=== PATIENT | male | born 1945 | race Caucasian/White ===

== ENCOUNTER 2019-10-03 14:12 | Inpatient (IN) | payer MEDICARE ==
[~2019-10-03] VITALS: Ht 177.8 cm; Wt 108.3 kg
[2019-10-03 14:51] LABS: BASO # 0.1 x10^3/uL (0.0-0.2); BASO % 1 % (0-3); EOS # 0.2 x10^3/uL (0.0-0.7); EOS % 2 % (0-3); HEMOGLOBIN 17.2 g/dL (13.0-17.5); LYMPH # 2.9 x10^3/uL (1.0-4.8); LYMPH % 34 % (24-48); MEAN CORPUSCULAR HEMOGLOBIN 31 pg (25-35); MEAN CORPUSCULAR HGB CONC 35 g/dL (31-37); MEAN CORPUSCULAR VOLUME 89 fL (79-100); MONO # 0.8 x10^3/uL (0.0-1.1); MONO % 10 % (0-9); NEUT # 4.6 x10^3/uL (1.8-7.7); NEUT % 53 % (31-73); PLATELET COUNT 262 x10^3/uL (140-400); RED BLOOD COUNT 5.48 x10^6/uL (4.30-5.70); RED CELL DISTRIBUTION WIDTH 15.1 % (11.5-14.5); WHITE BLOOD COUNT 8.6 x10^3/uL (4.0-11.0)
[2019-10-03 14:58] LABS: PROTHROMBIN TIME PATIENT 13.3 SEC (11.7-14.0)
[2019-10-03 15:02] LABS: CALCIUM 8.4 mg/dL (8.5-10.1); CREATININE 0.9 mg/dL (0.7-1.3); GFR 82.7; POTASSIUM 4.2 mmol/L (3.5-5.1)
[2019-10-03 15:09] LABS: ALBUMIN 3.5 g/dL (3.4-5.0); MAGNESIUM 1.9 mg/dL (1.8-2.4); TOTAL BILIRUBIN 0.5 mg/dL (0.2-1.0); TOTAL PROTEIN 6.9 g/dL (6.4-8.2)
--- NOTE | 2019-10-03 15:10 | RAD ---
EXAM: CT HEAD WITHOUT CONTRAST. HISTORY: Left weakness. TECHNIQUE: Computed tomography of the head was performed without intravenous contrast. One or more of the following individualized dose reduction techniques were utilized for this examination: 1. Automated exposure control. 2. Adjustment of the mA and/or kV according to patient size. 3. Use of iterative reconstruction technique. COMPARISON: None. FINDINGS: There is no intracranial hemorrhage. Hypoattenuation within the periventricular white matter indicates mild chronic microangiopathic change. The ventricles are normal in size and position for patient age. The visualized paranasal sinuses appear clear. The orbits are unremarkable. The temporal bones are unremarkable. The calvarium reveals no suspicious lesions. There are atherosclerotic calcifications of the internal carotid arteries. IMPRESSION: 1. No acute intracranial findings. MRI is more sensitive for acute ischemia if there is persistent concern. 2. Mild chronic microangiopathic white matter change. Electronically signed by: Lise Patton MD (10/03/2019 3:07 PM) [facility]
[2019-10-03 15:55] LABS: BILIRUBIN,URINE NEGATIVE (NEG); CLARITY,URINE CLEAR; COLOR,URINE YELLOW; NITRITE,URINE NEGATIVE (NEG); PH,URINE 6.5 (<5.0-8.0); PROTEIN,URINE NEGATIVE (NEG-TRACE)
--- NOTE | 2019-10-03 15:58 | EKG ---
[facility] [address] [place] [address] Test Date: 2019-10-03 Test Time: 14:27:37 Pat Name: KHURRAM MCDONNELL Department: Room: Gender: M Galley Worker: : 1945 Requested By: DELICIA LEMUS Order Number: [id number] Reading MD: Michael Hansen Measurements Intervals [place] Rate: 62 P: -22 DC: 234 QRS: 29 QRSD: 86 T: 64 QT: 416 QTc: 424 Interpretive Statements SINUS RHYTHM PROLONGED DC INTERVAL NON SPECIFIC ST-T WAVE CHANGES Electronically Signed On 10-30-2019 12:44:18 CDT by Michael Hansen
[2019-10-03 16:11] LABS: BACTERIA,URINE FEW /HPF (0-FEW); SQUAMOUS EPITHELIAL CELL,UR FEW /LPF
--- NOTE | 2019-10-03 16:18 | PHYS DOC ---
Past Medical History Past Medical History: GERD, High Cholesterol, Hypertension, Other Additional Past Medical Histor: 'ENLARGED PROSTATE I THINK' Past Surgical History: Cholecystectomy, Other Additional Past Surgical Histo: BILAT KNEE, L SHOULDER Smoking Status: Current Every Day Smoker Alcohol Use: None General Adult EDM: Chief Complaint: NEURO SYMPTOMS/DEFICITS HPI: HPI: Patient is a 74 year old male who was brought here by family for evaluation of left-sided facial droop, left-sided weakness and slurred speech started 4 days ago. No cough, no fever, no headache, no neck pain, no blurred vision. Patient denies any history of heart disease, no history of stroke in the past. Patient do have history of hypertension and hypercholesterol. Patient is on baby aspir in a day. Review of Systems: Review of Systems: Constitutional: Denies fever or chills. [] Eyes: Denies change in visual acuity. [] HENT: Denies nasal congestion or sore throat. [] Respiratory: Denies cough or shortness of breath. [] Cardiovascular: Denies chest pain or edema. [] GI: Denies abdominal pain, nausea, vomiting, bloody stools or diarrhea. [] : Denies dysuria. [] Musculoskeletal: Denies back pain or joint pain. [] Integument: Denies rash. [] Neurologic: Positive for left-sided facial droop, slurred speech, left-sided weakness. Endocrine: Denies polyuria or polydipsia. [] Lymphatic: Denies swollen glands. [] Psychiatric: Denies depression or anxiety. [] Heart Score: Risk Factors: Risk Factors: DM, Current or recent (<one month) smoker, HTN, HLP, family history of CAD, obesity. Risk Scores: Score 0 - 3: 2.5% MACE over next 6 weeks - Discharge Home Score 4 - 6: 20.3% MACE over next 6 weeks - Admit for Clinical Observation Score 7 - 10: 72.7% MACE over next 6 weeks - Early Invasive Strategies Allergies: Allergies: Allergies Coded Allergies Type Severity Reaction Last Updated Verified Penicillins Allergy Severe swelling 10/03/19 Yes Physical Exam: PE: Constitutional: Well developed, well nourished, no acute distress, non-toxic appearance. [] HENT: Normocephalic, atraumatic, bilateral external ears normal, oropharynx moist, no oral exudates, nose normal. [] Eyes: PERRLA, EOMI, conjunctiva normal, no discharge. [] Neck: Normal range of motion, no tenderness, supple, no stridor. [] Cardiovascular:Heart rate regular rhythm, no murmur [] Lungs & Thorax: Bilateral breath sounds clear to auscultation [] Abdomen: Bowel sounds normal, soft, no tenderness, no masses, no pulsatile masses. [] Skin: Warm, dry, no erythema, no rash. [] Back: No tenderness, no CVA tenderness. [] Extremities: No tenderness, no cyanosis, no clubbing, ROM intact, no edema. [] Neurologic: Alert and oriented X 3, left-sided facial droop, no forehead involvement, slurred speech, patient moves all extremities without any problem. Psychologic: Affect normal, judgement normal, mood normal. [] Current Patient Data: Labs: Laboratory Tests Test 10/03/19 14:22 10/03/19 14:23 10/03/19 15:47 Glucose (Fingerstick) 111 mg/dL (70-99) H White Blood Count 8.6 x10^3/uL (4.0-11.0) Red Blood Count 5.48 x10^6/uL (4.30-5.70) Hemoglobin 17.2 g/dL (13.0-17.5) Hematocrit 49.0 % (39.0-53.0) Mean Corpuscular Volume 89 fL (79-100) Mean Corpuscular Hemoglobin 31 pg (25-35) Mean Corpuscular Hemoglobin Concent 35 g/dL (31-37) Red Cell Distribution Width 15.1 % (11.5-14.5) H Platelet Count 262 x10^3/uL (140-400) Neutrophils (%) (Auto) 53 % (31-73) Lymphocytes (%) (Auto) 34 % (24-48) Monocytes (%) (Auto) 10 % (0-9) H Eosinophils (%) (Auto) 2 % (0-3) Basophils (%) (Auto) 1 % (0-3) Neutrophils # (Auto) 4.6 x10^3/uL (1.8-7.7) Lymphocytes # (Auto) 2.9 x10^3/uL (1.0-4.8) Monocytes # (Auto) 0.8 x10^3/uL (0.0-1.1) Eosinophils # (Auto) 0.2 x10^3/uL (0.0-0.7) Basophils # (Auto) 0.1 x10^3/uL (0.0-0.2) Prothrombin Time 13.3 SEC (11.7-14.0) Prothrombin Time INR 1.1 (0.8-1.1) Activated Partial Thromboplast Time 37 SEC (24-38) Sodium Level 139 mmol/L (136-145) Potassium Level 4.2 mmol/L (3.5-5.1) Chloride Level 101 mmol/L (98-107) Carbon Dioxide Level 27 mmol/L (21-32) Anion Gap 11 (6-14) Blood Urea Nitrogen 13 mg/dL (8-26) Creatinine 0.9 mg/dL (0.7-1.3) Estimated GFR (Cockcroft-Gault) 82.7 BUN/Creatinine Ratio 14 (6-20) Glucose Level 107 mg/dL (70-99) H Calcium Level 8.4 mg/dL (8.5-10.1) L Magnesium Level 1.9 mg/dL (1.8-2.4) Total Bilirubin 0.5 mg/dL (0.2-1.0) Aspartate Amino Transferase (AST) 19 U/L (15-37) Alanine Aminotransferase (ALT) 20 U/L (16-63) Alkaline Phosphatase 93 U/L (46-116) Troponin I Quantitative < 0.017 ng/mL (0.000-0.055) Total Protein 6.9 g/dL (6.4-8.2) Albumin 3.5 g/dL (3.4-5.0) Albumin/Globulin Ratio 1.0 (1.0-1.7) Urine Collection Type Unknown Urine Color Yellow Urine Clarity Clear Urine pH 6.5 (<5.0-8.0) Urine Specific [place] 1.020 (1.000-1.030) Urine Protein Negative mg/dL (NEG-TRACE) Urine Glucose (UA) Negative mg/dL (NEG) Urine Ketones (Stick) Negative mg/dL (NEG) Urine Blood Negative (NEG) Urine Nitrite Negative (NEG) Urine Bilirubin Negative (NEG) Urine Urobilinogen Dipstick 1.0 mg/dL (0.2 mg/dL) Urine Leukocyte Esterase Small (NEG) Urine RBC 1-2 /HPF (0-2) Urine WBC 5-10 /HPF (0-4) Urine Squamous Epithelial Cells Few /LPF Urine Bacteria Few /HPF (0-FEW) Urine Mucus Slight /LPF Laboratory Tests 10/03/19 14:23 Laboratory Tests 10/03/19 14:23 Vital Signs: Vital Signs Date Time Temp Pulse Resp B/P (MAP) Pulse Ox O2 Delivery O2 Flow Rate FiO2 10/03/19 14:18 98.2 65 22 215/93 (133) 95 Room Air 98.2 EKG: EKG: EKG was done at 1427, heart rate of 62 bpm, sinus rhythm, no ST segment elevation Radiology/Procedures: Radiology/Procedures: [][facility] [address] [place] [address] IMAGING REPORT Signed PATIENT: KHURRAM MCDONNELL ACCOUNT: [id number] : 1945 LOCATION: ER AGE: 74 SEX: M EXAM STATUS: REG ER ORD. PHYSICIAN: DELICIA LEMUS DO REASON: left side facial droop, left side weakness PROCEDURE: CT HEAD WO CONTRAST EXAM: CT HEAD WITHOUT CONTRAST. HISTORY: Left weakness. TECHNIQUE: Computed tomography of the head was performed without intravenous contrast. One or more of the following individualized dose reduction techniques were utilized for this examination: 1. Automated exposure control. 2. Adjustment of the mA and/or kV according to patient size. 3. Use of iterative reconstruction technique. COMPARISON: None. FINDINGS: There is no intracranial hemorrhage. Hypoattenuation within the periventricular white matter indicates mild chronic microangiopathic change. The ventricles are normal in size and position for patient age. The visualized paranasal sinuses appear clear. The orbits are unremarkable. The temporal bones are unremarkable. The calvarium reveals no suspicious lesions. There are atherosclerotic calcifications of the internal carotid arteries. IMPRESSION: 1. No acute intracranial findings. MRI is more sensitive for acute ischemia if there is persistent concern. 2. Mild chronic microangiopathic white matter change. Electronically signed by: Lise Patton MD (10/03/2019 3:07 PM) [facility] DICTATED and SIGNED BY: LUCY PATTON MD DATE: 10/03/19 2969 Course & Med Decision Making: Course & Med Decision Making Pertinent Labs and Imaging studies reviewed. (See chart for details) Patient is a 74-year-old male who was evaluated in ER due to facial droop, left- sided weakness, slurred speech. Patient is suspected acute CVA, patient be admitted to hospital for further evaluation and treatment. Discussed with Dr. Jimenez who agreed to admit the patient to hospital service. Dragon Disclaimer: Dragon Disclaimer: This electronic medical record was generated, in whole or in part, using a voice recognition dictation system. Departure Departure Impression: Primary Impression: Acute CVA (cerebrovascular accident) Disposition: ADMITTED INPATIENT Admitting Physician: SONNY (DR. KOCH) Condition: STABLE Referrals: ZACHARY AGUIRRE MD (PCP) Justicifation of Admission Dx: Justifications for Admission: Justification of Admission Dx: Yes Stroke - Ischemic: Stroke-Ischemic DELICIA LEMUS DO Oct 03, 2019 16:18
[2019-10-03] MEDS ORDERED: ONDANSETRON PF 4 MG/2 ML VIAL. IV PRN (16:45)
[2019-10-03] MEDS ORDERED: NICOTINE 21MG PATCH. TD ONE (17:30)
[2019-10-03] MEDS ORDERED: ASPIRIN CHEWABLE 81 MG TABLET. PO ONE (18:15)
[2019-10-03 18:46] VITALS: BP 207/104
[2019-10-03] MEDS ORDERED: cloNIDine HCL 0.3 MG TABLET PO PRN (19:00)
[2019-10-03] MEDS ORDERED: CYAN-25 PO (19:19)
[2019-10-03] MEDS ORDERED: OMEP-346 PO (19:19)
[2019-10-03] MEDS ORDERED: ACET325T9 PO (19:19)
[2019-10-03] MEDS ORDERED: LISI-130 PO (19:19)
[2019-10-03] MEDS ORDERED: super beta prostate PO (19:19)
[2019-10-03] MEDS ORDERED: METO200T46 PO (19:19)
[2019-10-03] MEDS ORDERED: TRAM50TA PO (19:19)
[2019-10-03] MEDS ORDERED: ASPI81TA11 PO (19:19)
[2019-10-03 19:34] VITALS: BP 183/100
--- NOTE | 2019-10-03 20:08 | HP ---
ADMIT DATE: 10/03/2019 CHIEF COMPLAINT: Neuro symptoms. HISTORY OF PRESENT ILLNESS: The patient is a pleasant 74-year-old male who has been having stroke symptoms for the past 4 days. He just did not go to the hospital. The family finally made him come in. He basically has left sided weakness and slurred speech. Clinically, seems to have had a stroke. I discussed the case with ER physician. We are going to admit the patient and consult Neurology. PAST MEDICAL HISTORY: Noncompliance, hypertension, GERD, hyperlipidemia, BPH, cholecystectomy, bilateral knee surgeries and left shoulder surgery, tobacco abuse. ALLERGIES: PENICILLIN. FAMILY HISTORY: Hypertension. SOCIAL HISTORY: He smokes. No drink or drugs. He is retired. MEDICATIONS: Reviewed, please refer to the MRAD. REVIEW OF SYSTEMS: GENERAL: No history of weight change, weakness or fevers. SKIN: No bruising, hair changes or rashes. EYES: No blurred, double or loss of vision. NOSE AND THROAT: No history of nosebleeds, hoarseness or sore throat. HEART: No history of palpitations, chest pain or shortness of breath on exertion. LUNGS: Denies cough, hemoptysis, wheezing or shortness of breath. GASTROINTESTINAL: Denies changes in appetite, nausea, vomiting, diarrhea or constipation. GENITOURINARY: No history of frequency, urgency, hesitancy or nocturia. NEUROLOGIC: He complains of slurred speech, left sided weakness. PSYCHIATRIC: No history of panic, anxiety or depression. ENDOCRINE: No history of heat or cold intolerance, polyuria or polydipsia. EXTREMITIES: Denies muscle weakness, joint pain, pain on walking or stiffness. PHYSICAL EXAMINATION: VITALS: Within normal limits and are stable. GENERAL: No apparent distress. Alert and oriented. HEENT: Normal cephalic atraumatic, external auditory canals are patent EYES: Extraocular muscles are intact, pupils are equally round and reactive to light and accommodation MUSCULOSKELETAL: Well developed, well nourished, good range of motion ENDOCRINE: No thyromegaly was palpated LYMPHATICS: No cervical chain or axillary nodes were noted HEMATOPOIETIC: No bruising NECK: Supple, no JVD, no thyromegaly was noted. LUNGS: Clear to auscultation in all lung malcolm without rhonchi or wheezing. HEART: RRR, S1, S2 present. Peripheral pulses intact, no obvious murmurs were noted. ABDOMEN: Soft, nontender. Positive bowel sounds no organomegaly, normal bowel sounds. EXTREMITIES: Without any cyanosis, clubbing, or edema. Pedal pulses intact, Homans sign is negative. 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 He has a slurred speech as well. PSYCHIATRIC: Normal affect, normal mood. Stable. SKIN: No ulcerations or rashes, good skin turgor, no jaundice. VASCULAR: Good capillary refill, neurovascular bundle appears to be intact. LABORATORY DATA: Hematology is normal. Electrolytes are normal. CT of the head shows no acute findings other than chronic small vessel disease. ASSESSMENT AND PLAN: Stroke symptoms. The patient has been admitted. Consult Neurology. Home medications, deep vein thrombosis prophylaxis. Full code. PT, OT, speech therapy. PROGNOSIS: Guarded. TONEY KOCH DO DR: COREY/gilma JOB#: [id number] / [id number]
[2019-10-03 23:13] VITALS: BP 161/78
[2019-10-04 03:40] VITALS: BP 177/84
[2019-10-04 07:00] VITALS: BP 154/86
[2019-10-04] MEDS ORDERED: ACETAMINOPHEN 650 MG SUPP.RECT. PR PRN (08:45)
[2019-10-04] MEDS ORDERED: ASPIRIN RECTAL 300 MG SUPP. PR PRN (08:45)
[2019-10-04] MEDS ORDERED: ACETAMINOPHEN 325 MG TABLET. PO PRN (08:45)
[2019-10-04] MEDS ORDERED: ASPIRIN ENTERIC COATED 325 MG TABLET.DR. PO SCH (09:00)
[2019-10-04] MEDS ORDERED: LISINOPRIL 20 MG TABLET PO SCH (09:00)
[2019-10-04] MEDS ORDERED: PANTOPRAZOLE 40 MG TABLET.DR. PO SCH (09:00)
[2019-10-04] MEDS ORDERED: ASPIRIN ENTERIC COATED 81 MG TABLET.DR. PO SCH (09:00)
[2019-10-04] MEDS ORDERED: METOPROLOL SUCC 24HR ER 100 MG TAB.ER.24H. PO SCH (09:00)
[2019-10-04] MEDS ORDERED: CYANOCOBALAMIN (VITAMIN B-12) 1,000 MCG TABLET. PO SCH (09:00)
--- NOTE | 2019-10-04 10:04 | RAD ---
Clinical Indications: Left facial droop, slurred speech, left-sided weakness. Exam : Carotid Duplex with Grayscale Ultrasound and Spectral and Color Doppler Analysis: PQRS Compliance Statement - Stenosis calculations for CT, MR and conventional angiography are based upon measurement of the distal ICA diameter in accordance with the NASCET methodology. Stenosis calculations for carotid ultrasound studies are derived from validated velocity criteria which are known to correlate with the NASCET methodology. Comparison study: None available. Findings: The common, internal and external carotid arteries were examined by grayscale, color and spectral Doppler ultrasound. Moderate atherosclerotic calcifications identified in the bilateral carotid bulbs and proximal internal carotid arteries. Flow in both vertebral arteries was antegrade and normal. The following are the velocities and ratios in the carotid arteries on both sides: RIGHT ICA PV: 73cm/sec RIGHT CCA PV: 67cm/sec RIGHT ICA ED: 12cm/sec RIGHT IC/CCPV: 0.8 RIGHT VERTEBRAL: antegrade flow RIGHT % STENOSIS: Less than 50 percent LEFT ICA PV: 75cm/sec LEFT CCA PV: 66cm/sec LEFT ICA ED: 10cm/sec LEFT IC/CCPV: 1.1 LEFT VERTEBRAL: antegrade flow LEFT % STENOSIS: Less than 50 percent <50% ICA Stenosis: PSV < 125cm/s (EDV < 40cm/s; SVR < 2.0) 50-69% ICA Stenosis: PSV < 125-229cm/s (EDV 40-99cm/s; SVR 2.0-3.9) >70% ICA Stenosis: PSV > 230cm/s (EDV >100cm/s; SVR >4.0) Impression: 1. No evidence of hemodynamically significant stenosis. Electronically signed by: Kosta Noonan MD (10/04/2019 10:01 AM) [id number]
[2019-10-04 11:00] VITALS: BP 141/79
--- NOTE | 2019-10-04 11:36 | PDOC2 ---
NEUROLOGY CONSULT Date of Admission Date of Admission DATE: 10/04/19 TIME: 11:30 Reason for Consult Reason for Consult: Stroke Referring Physician Referring Physician: Dr. Brantley PCP: Dr. Lay Source Source: Chart review, Patient History of Present Illness History of Present Illness The patient is a 74-year-old right-handed male who noticed some left facial droop and dysarthria 4 days ago. His family finally convinced him to come to the hospital. There's no prior history of stroke, seizure, or head injury. He denies headache, diplopia, dysphagia, weakness in arms and legs. Blood pressure was elevated last night, better this morning. Past Medical History Cardiovascular: HTN, Hyperlipidemia GI: GERD Renal/: Benign prostatic enlarg. Past Surgical History Past Surgical History: Cholecystectomy, Other (Knees) Family History Family History: Cancer Social History Social History He told me he quit smoking, told nurses he smokes 3 packs of cigarettes per day, ex-alcohol user, , retired Current Medications Current Medications Current Medications Ondansetron HCl (Zofran) 4 mg PRN Q8HRS PRN IV NAUSEA/VOMITING; Start 10/03/19 at 16:45; Stop 10/04/19 at 16:44 Nicotine (Nicoderm Cq 21mg) 1 patch 1X ONCE TD Last administered on 10/03/19at 17:42; Start 10/03/19 at 17:30; Stop 10/03/19 at 17:31; Status DC Lorazepam (Ativan Inj) 1 mg 1X ONCE IVP Last administered on 10/03/19at 17:42; Start 10/03/19 at 17:30; Stop 10/03/19 at 17:31; Status DC Aspirin (Aspirin Chewable) 324 mg 1X ONCE PO Last administered on 10/03/19at 17:45; Start 10/03/19 at 18:15; Stop 10/03/19 at 18:16; Status DC Clonidine HCl (Catapres) 0.3 mg PRN Q4HRS PRN PO SBP>160 Last administered on 10/03/19at 19:31; Start 10/03/19 at 19:00 Acetaminophen (Tylenol) 650 mg QHS PO ; Start 10/04/19 at 21:00 Aspirin (Ecotrin) 81 mg DAILY PO ; Start 10/04/19 at 09:00; Stop 10/04/19 at 08:41; Status DC Cyanocobalamin (Vitamin B-12) 1,000 mcg DAILY PO Last administered on 10/04/19at 10:17; Start 10/04/19 at 09:00 Lisinopril (Prinivil) 40 mg DAILY PO Last administered on 10/04/19at 10:17; Start 10/04/19 at 09:00 Tramadol HCl (Ultram) 50 mg QHS PO ; Start 10/04/19 at 21:00 Metoprolol Succinate (Toprol Xl) 200 mg DAILY PO Last administered on 10/04/19at 10:16; Start 10/04/19 at 09:00 Pantoprazole Sodium (Protonix) 40 mg DAILYAC PO Last administered on 10/04/19at 10:16; Start 10/04/19 at 09:00 Acetaminophen (Tylenol) 650 mg PRN Q6HRS PRN PO TEMP > 100.4F; Start 10/04/19 at 08:45 Acetaminophen (Tylenol Supp) 650 mg PRN Q4HRS PRN HI TEMP > 100.4F; Start 10/04/19 at 08:45 Aspirin (Ecotrin) 325 mg DAILYWBKFT PO Last administered on 10/04/19at 10:17; Start 10/04/19 at 09:00 Aspirin (Aspirin Rectal Supp) 300 mg PRN DAILY PRN HI IF UNABLE TO TAKE PO; Start 10/04/19 at 08:45 Active Scripts Active Reported [super beta prostate] 1 Tab PO BIDAC Tylenol (Acetaminophen) 325 Mg Tablet 2 Tab PO QHS Low Dose Aspirin Ec (Aspirin) 81 Mg Tablet.dr 1 Tab PO DAILY Vitamin B-12 (Cyanocobalamin (Vitamin B-12)) 1,000 Mcg Tablet 1 Tab PO DAILY 30 Days Metoprolol Succinate ( Xl ) (Metoprolol Succinate) 200 Mg Tab.er.24h 1 Tab PO DAILY Lisinopril 40 Mg Tablet 1 Tab PO DAILY Omeprazole 20 Mg Tab.rap.dr 20 Mg PO BID Allergies Allergies: Coded Allergies: Penicillins (Verified Allergy, Severe, swelling, 10/03/19) ROS Review of System Negative for fever, chills, weight loss, shortness of breath, chest pain, indigestion, hematochezia, melena, and dysuria. Full 14-point review of systems is negative. Physical Exam Physical Examination General: Well-developed, well-nourished white male in no acute distress HEENT: Normocephalic andatraumatic. Temporal arteriespulsatile and nontender. Neck: Supple without bruit, no meningismus Musculoskeletal: Stability:see neurologic. Gait exam:see neurologic. Tone:see neurologic.Stre ngth:see neurologic. Neurological: Mental Status:intact, orientation, memory, attention span/concentration, language, fund of knowledge normal. Cranial Nerves:Pupils equal and reactive to light, extraocular movements areintact, visual malcolm are full to confrontation. Facial sensation is normal. There is a left central facial weakness. There is dysarthria. Vestibulo-ocular reflex is intact. Palate elevates and tongue protrudes in midline. All other cranial related problems are negative except as mentioned before.Reflexes:2+ and symmetric with flexor plantar responses. Motor:5/5 strength with normal tone and bulk. Coordinati on:Finger-nose finger and qyek-su-qihj testing are normal. Rapid alternating movements and fine finger movements are intact. Gait:Normal, including tandem. Sensory:Normal pinprick, vibration, light touch, proprioception. Vitals VITALS Vital Signs Date Time Temp Pulse Resp B/P (MAP) Pulse Ox O2 Delivery O2 Flow Rate FiO2 10/04/19 11:00 97.9 61 18 141/79 (99) 94 Room Air 97.9 Labs Labs Laboratory Tests Test 10/03/19 14:22 10/03/19 14:23 10/03/19 15:47 Glucose (Fingerstick) 111 mg/dL (70-99) White Blood Count 8.6 x10^3/uL (4.0-11.0) Red Blood Count 5.48 x10^6/uL (4.30-5.70) Hemoglobin 17.2 g/dL (13.0-17.5) Hematocrit 49.0 % (39.0-53.0) Mean Corpuscular Volume 89 fL (79-100) Mean Corpuscular Hemoglobin 31 pg (25-35) Mean Corpuscular Hemoglobin Concent 35 g/dL (31-37) Red Cell Distribution Width 15.1 % (11.5-14.5) Platelet Count 262 x10^3/uL (140-400) Neutrophils (%) (Auto) 53 % (31-73) Lymphocytes (%) (Auto) 34 % (24-48) Monocytes (%) (Auto) 10 % (0-9) Eosinophils (%) (Auto) 2 % (0-3) Basophils (%) (Auto) 1 % (0-3) Neutrophils # (Auto) 4.6 x10^3/uL (1.8-7.7) Lymphocytes # (Auto) 2.9 x10^3/uL (1.0-4.8) Monocytes # (Auto) 0.8 x10^3/uL (0.0-1.1) Eosinophils # (Auto) 0.2 x10^3/uL (0.0-0.7) Basophils # (Auto) 0.1 x10^3/uL (0.0-0.2) Prothrombin Time 13.3 SEC (11.7-14.0) Prothromb Time International Ratio 1.1 (0.8-1.1) Activated Partial Thromboplast Time 37 SEC (24-38) Sodium Level 139 mmol/L (136-145) Potassium Level 4.2 mmol/L (3.5-5.1) Chloride Level 101 mmol/L (98-107) Carbon Dioxide Level 27 mmol/L (21-32) Anion Gap 11 (6-14) Blood Urea Nitrogen 13 mg/dL (8-26) Creatinine 0.9 mg/dL (0.7-1.3) Estimated GFR (Cockcroft-Gault) 82.7 BUN/Creatinine Ratio 14 (6-20) Glucose Level 107 mg/dL (70-99) Calcium Level 8.4 mg/dL (8.5-10.1) Magnesium Level 1.9 mg/dL (1.8-2.4) Total Bilirubin 0.5 mg/dL (0.2-1.0) Aspartate Amino Transf (AST/SGOT) 19 U/L (15-37) Alanine Aminotransferase (ALT/SGPT) 20 U/L (16-63) Alkaline Phosphatase 93 U/L (46-116) Troponin I Quantitative < 0.017 ng/mL (0.000-0.055) Total Protein 6.9 g/dL (6.4-8.2) Albumin 3.5 g/dL (3.4-5.0) Albumin/Globulin Ratio 1.0 (1.0-1.7) Urine Collection Type Unknown Urine Color Yellow Urine Clarity Clear Urine pH 6.5 (<5.0-8.0) Urine Specific [place] 1.020 (1.000-1.030) Urine Protein Negative mg/dL (NEG-TRACE) Urine Glucose (UA) Negative mg/dL (NEG) Urine Ketones (Stick) Negative mg/dL (NEG) Urine Blood Negative (NEG) Urine Nitrite Negative (NEG) Urine Bilirubin Negative (NEG) Urine Urobilinogen Dipstick 1.0 mg/dL (0.2 mg/dL) Urine Leukocyte Esterase Small (NEG) Urine RBC 1-2 /HPF (0-2) Urine WBC 5-10 /HPF (0-4) Urine Squamous Epithelial Cells Few /LPF Urine Bacteria Few /HPF (0-FEW) Urine Mucus Slight /LPF Laboratory Tests Test 10/03/19 14:22 10/03/19 14:23 10/03/19 15:47 Glucose (Fingerstick) 111 mg/dL (70-99) White Blood Count 8.6 x10^3/uL (4.0-11.0) Red Blood Count 5.48 x10^6/uL (4.30-5.70) Hemoglobin 17.2 g/dL (13.0-17.5) Hematocrit 49.0 % (39.0-53.0) Mean Corpuscular Volume 89 fL (79-100) Mean Corpuscular Hemoglobin 31 pg (25-35) Mean Corpuscular Hemoglobin Concent 35 g/dL (31-37) Red Cell Distribution Width 15.1 % (11.5-14.5) Platelet Count 262 x10^3/uL (140-400) Neutrophils (%) (Auto) 53 % (31-73) Lymphocytes (%) (Auto) 34 % (24-48) Monocytes (%) (Auto) 10 % (0-9) Eosinophils (%) (Auto) 2 % (0-3) Basophils (%) (Auto) 1 % (0-3) Neutrophils # (Auto) 4.6 x10^3/uL (1.8-7.7) Lymphocytes # (Auto) 2.9 x10^3/uL (1.0-4.8) Monocytes # (Auto) 0.8 x10^3/uL (0.0-1.1) Eosinophils # (Auto) 0.2 x10^3/uL (0.0-0.7) Basophils # (Auto) 0.1 x10^3/uL (0.0-0.2) Prothrombin Time 13.3 SEC (11.7-14.0) Prothromb Time International Ratio 1.1 (0.8-1.1) Activated Partial Thromboplast Time 37 SEC (24-38) Sodium Level 139 mmol/L (136-145) Potassium Level 4.2 mmol/L (3.5-5.1) Chloride Level 101 mmol/L (98-107) Carbon Dioxide Level 27 mmol/L (21-32) Anion Gap 11 (6-14) Blood Urea Nitrogen 13 mg/dL (8-26) Creatinine 0.9 mg/dL (0.7-1.3) Estimated GFR (Cockcroft-Gault) 82.7 BUN/Creatinine Ratio 14 (6-20) Glucose Level 107 mg/dL (70-99) Calcium Level 8.4 mg/dL (8.5-10.1) Magnesium Level 1.9 mg/dL (1.8-2.4) Total Bilirubin 0.5 mg/dL (0.2-1.0) Aspartate Amino Transf (AST/SGOT) 19 U/L (15-37) Alanine Aminotransferase (ALT/SGPT) 20 U/L (16-63) Alkaline Phosphatase 93 U/L (46-116) Troponin I Quantitative < 0.017 ng/mL (0.000-0.055) Total Protein 6.9 g/dL (6.4-8.2) Albumin 3.5 g/dL (3.4-5.0) Albumin/Globulin Ratio 1.0 (1.0-1.7) Urine Collection Type Unknown Urine Color Yellow Urine Clarity Clear Urine pH 6.5 (<5.0-8.0) Urine Specific [place] 1.020 (1.000-1.030) Urine Protein Negative mg/dL (NEG-TRACE) Urine Glucose (UA) Negative mg/dL (NEG) Urine Ketones (Stick) Negative mg/dL (NEG) Urine Blood Negative (NEG) Urine Nitrite Negative (NEG) Urine Bilirubin Negative (NEG) Urine Urobilinogen Dipstick 1.0 mg/dL (0.2 mg/dL) Urine Leukocyte Esterase Small (NEG) Urine RBC 1-2 /HPF (0-2) Urine WBC 5-10 /HPF (0-4) Urine Squamous Epithelial Cells Few /LPF Urine Bacteria Few /HPF (0-FEW) Urine Mucus Slight /LPF Images Images CT HEAD WITHOUT CONTRAST. HISTORY: Left weakness. TECHNIQUE: Computed tomography of the head was performed without intravenous contrast. One or more of the following individualized dose reduction techniques were utilized for this examination: 1. Automated exposure control. 2. Adjustment of the mA and/or kV according to patient size. 3. Use of iterative reconstruction technique. COMPARISON: None. FINDINGS: There is no intracranial hemorrhage. Hypoattenuation within the periventricular white matter indicates mild chronic microangiopathic change. The ventricles are normal in size and position for patient age. The visualized paranasal sinuses appear clear. The orbits are unremarkable. The temporal bones are unremarkable. The calvarium reveals no suspicious lesions. There are atherosclerotic calcifications of the internal carotid arteries. IMPRESSION: 1. No acute intracranial findings. MRI is more sensitive for acute ischemia if there is persistent concern. 2. Mild chronic microangiopathic white matter change. Carotids: The common, internal and external carotid arteries were examined by grayscale, color and spectral Doppler ultrasound. Moderate atherosclerotic calcifications identified in the bilateral carotid bulbs and proximal internal carotid arteries. Flow in both vertebral arteries was antegrade and normal. The following are the velocities and ratios in the carotid arteries on both sides: RIGHT ICA PV: 73cm/sec RIGHT CCA PV: 67cm/sec RIGHT ICA ED: 12cm/sec RIGHT IC/CCPV: 0.8 RIGHT VERTEBRAL: antegrade flow RIGHT % STENOSIS: Less than 50 percent LEFT ICA PV: 75cm/sec LEFT CCA PV: 66cm/sec LEFT ICA ED: 10cm/sec LEFT IC/CCPV: 1.1 LEFT VERTEBRAL: antegrade flow LEFT % STENOSIS: Less than 50 percent <50% ICA Stenosis: PSV < 125cm/s (EDV < 40cm/s; SVR < 2.0) 50-69% ICA Stenosis: PSV < 125-229cm/s (EDV 40-99cm/s; SVR 2.0-3.9) >70% ICA Stenosis: PSV > 230cm/s (EDV >100cm/s; SVR >4.0) Impression: 1. No evidence of hemodynamically significant stenosis. Assessment/Plan Assessment/Plan Impression: Clinically a lacunar infarct, right hemisphere or brainstem Hypertension, hyperlipidemia Recommendations: MRI the brain Echocardiogram Carotid Doppler studies, done Increase aspirin to 325 mg daily Continue statin Rehabilitation evaluation Aim for discharge as soon as later today if blood pressure remain stable Follow-up with primary care physician Follow-up with neurology as needed. Stressed risk factor reduction. Thank you for any help with the patient's care. CRISTIANO BONILLA MD Oct 04, 2019 11:36
--- NOTE | 2019-10-04 12:10 | PDOC ---
[employer] PROGRESS NOTE Chief Complaint Chief Complaint Stroke with slurred speech and left weakness Noncompliance, hypertension, GERD, hyperlipidemia, BPH, cholecystectomy, bilateral knee surgeries and left shoulder surgery, tobacco abuse. History of Present Illness History of Present Illness 10/04/2019 Patient seen and examined Discussed with RN Chart reviewed Vitals/I&O Vitals/I&O: Vital Signs Date Time Temp Pulse Resp B/P (MAP) Pulse Ox O2 Delivery O2 Flow Rate FiO2 10/04/19 11:00 97.9 61 18 141/79 (99) 94 Room Air 97.9 I & O 10/03/19 10/03/19 10/04/19 14:59 22:59 06:59 Intake Total 210 ml Balance 210 ml Physical Exam Physical Exam: Neuro; he still has slurred speech General: Alert, Oriented X3 Heart: Regular rate Lungs: Clear Abdomen: Normal bowel sounds Extremities: No clubbing Skin: No rashes Labs Labs: Laboratory Tests Test 10/03/19 14:22 10/03/19 14:23 10/03/19 15:47 Glucose (Fingerstick) 111 mg/dL (70-99) White Blood Count 8.6 x10^3/uL (4.0-11.0) Red Blood Count 5.48 x10^6/uL (4.30-5.70) Hemoglobin 17.2 g/dL (13.0-17.5) Hematocrit 49.0 % (39.0-53.0) Mean Corpuscular Volume 89 fL (79-100) Mean Corpuscular Hemoglobin 31 pg (25-35) Mean Corpuscular Hemoglobin Concent 35 g/dL (31-37) Red Cell Distribution Width 15.1 % (11.5-14.5) Platelet Count 262 x10^3/uL (140-400) Neutrophils (%) (Auto) 53 % (31-73) Lymphocytes (%) (Auto) 34 % (24-48) Monocytes (%) (Auto) 10 % (0-9) Eosinophils (%) (Auto) 2 % (0-3) Basophils (%) (Auto) 1 % (0-3) Neutrophils # (Auto) 4.6 x10^3/uL (1.8-7.7) Lymphocytes # (Auto) 2.9 x10^3/uL (1.0-4.8) Monocytes # (Auto) 0.8 x10^3/uL (0.0-1.1) Eosinophils # (Auto) 0.2 x10^3/uL (0.0-0.7) Basophils # (Auto) 0.1 x10^3/uL (0.0-0.2) Prothrombin Time 13.3 SEC (11.7-14.0) Prothromb Time International Ratio 1.1 (0.8-1.1) Activated Partial Thromboplast Time 37 SEC (24-38) Sodium Level 139 mmol/L (136-145) Potassium Level 4.2 mmol/L (3.5-5.1) Chloride Level 101 mmol/L (98-107) Carbon Dioxide Level 27 mmol/L (21-32) Anion Gap 11 (6-14) Blood Urea Nitrogen 13 mg/dL (8-26) Creatinine 0.9 mg/dL (0.7-1.3) Estimated GFR (Cockcroft-Gault) 82.7 BUN/Creatinine Ratio 14 (6-20) Glucose Level 107 mg/dL (70-99) Calcium Level 8.4 mg/dL (8.5-10.1) Magnesium Level 1.9 mg/dL (1.8-2.4) Total Bilirubin 0.5 mg/dL (0.2-1.0) Aspartate Amino Transf (AST/SGOT) 19 U/L (15-37) Alanine Aminotransferase (ALT/SGPT) 20 U/L (16-63) Alkaline Phosphatase 93 U/L (46-116) Troponin I Quantitative < 0.017 ng/mL (0.000-0.055) Total Protein 6.9 g/dL (6.4-8.2) Albumin 3.5 g/dL (3.4-5.0) Albumin/Globulin Ratio 1.0 (1.0-1.7) Urine Collection Type Unknown Urine Color Yellow Urine Clarity Clear Urine pH 6.5 (<5.0-8.0) Urine Specific [place] 1.020 (1.000-1.030) Urine Protein Negative mg/dL (NEG-TRACE) Urine Glucose (UA) Negative mg/dL (NEG) Urine Ketones (Stick) Negative mg/dL (NEG) Urine Blood Negative (NEG) Urine Nitrite Negative (NEG) Urine Bilirubin Negative (NEG) Urine Urobilinogen Dipstick 1.0 mg/dL (0.2 mg/dL) Urine Leukocyte Esterase Small (NEG) Urine RBC 1-2 /HPF (0-2) Urine WBC 5-10 /HPF (0-4) Urine Squamous Epithelial Cells Few /LPF Urine Bacteria Few /HPF (0-FEW) Urine Mucus Slight /LPF Assessment and Plan Assessmemt and Plan Stroke Noncompliance, hypertension, GERD, hyperlipidemia, BPH, cholecystectomy, bilateral knee surgeries and left shoulder surgery, tobacco abuse. Clinically a lacunar infarct, right hemisphere or brainstem Hypertension, hyperlipidemia Plan Speech therapy occupational therapy and physical therapy Home meds DVT prophylaxis Statins Antiplatelets Home meds Trend labs Appreciate neuro input, per neurology please see below : Recommendations: MRI the brain Echocardiogram Carotid Doppler studies, done Increase aspirin to 325 mg daily Continue statin Rehabilitation evaluation Aim for discharge as soon as later today if blood pressure remain stable Follow-up with primary care physician Follow-up with neurology as needed. Stressed risk factor reduction. Comment Review of Relevant I have reviewed the following items vicky (where applicable) has been applied. Medications: Current Medications Medications (Trade) Dose Ordered Sig/Chasidy Route PRN Reason Start Time Stop Time Status Last Admin Dose Admin Nicotine (Nicoderm Cq 21mg) 1 patch 1X ONCE TD 10/03/19 17:30 10/03/19 17:31 DC 10/03/19 17:42 Lorazepam (Ativan Inj) 1 mg 1X ONCE IVP 10/03/19 17:30 10/03/19 17:31 DC 10/03/19 17:42 Aspirin (Aspirin Chewable) 324 mg 1X ONCE PO 10/03/19 18:15 10/03/19 18:16 DC 10/03/19 17:45 Clonidine HCl (Catapres) 0.3 mg PRN Q4HRS PRN PO SBP>160 10/03/19 19:00 10/03/19 19:31 Cyanocobalamin (Vitamin B-12) 1,000 mcg DAILY PO 10/04/19 09:00 10/04/19 10:17 Lisinopril (Prinivil) 40 mg DAILY PO 10/04/19 09:00 10/04/19 10:17 Metoprolol Succinate (Toprol Xl) 200 mg DAILY PO 10/04/19 09:00 10/04/19 10:16 Pantoprazole Sodium (Protonix) 40 mg DAILYAC PO 10/04/19 09:00 10/04/19 10:16 Aspirin (Ecotrin) 325 mg DAILYWBKFT PO 10/04/19 09:00 10/04/19 10:17 Justicifation of Admission Dx: Justifications for Admission: Justification of Admission Dx: Yes Stroke - Ischemic: Stroke-Ischemic TONEY KOCH III DO Oct 04, 2019 12:10
--- NOTE | 2019-10-04 13:51 | NUR ---
SW following for discharge planning. SW reviewed chart and spoke with RN. IRWIN met with pt who stated he lives at home with his and dtr. 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 Pt to have a neuro workup for possible stroke. Reviewed OT recommendation for pt to return home at discharge. Pt agreeable to this plan and stated no need for HH. Pt on room air. Pt will continue following.
--- NOTE | 2019-10-04 15:48 | RAD ---
BRAIN W/O CONTRAST Date: 10/04/2019 8:37 AM Indication: CVA, left weakness Comparison: CT 10/03/2019. Technique: Multiplanar multisequence MRI of the brain was performed without intravenous contrast using the standard protocol. Findings: Focus of restricted diffusion in the right posterior frontal lobe. No acute or chronic hemorrhage. The ventricles are normal in size and configuration without hydrocephalus. Moderate scattered FLAIR hyperintensities in the subcortical and periventricular deep white matter, a nonspecific finding, most commonly seen with chronic small vessel ischemic disease. Mild generalized cerebral volume loss. The scalp and calvarium are normal. Partial empty sella. No Chiari malformation. Mild incompletely characterized degenerative spondylosis of the visualized upper cervical spine. The visualized orbits and globes are normal. The visualized paranasal sinuses are clear. The mastoid air cells are clear. Normal flow voids within the vertebral, basilar, and internal carotid arteries indicating patency. IMPRESSION: 1. Focus of acute infarct in the right posterior frontal lobe. No acute hemorrhage. 2. Moderate chronic small vessel ischemic disease and age-appropriate cerebral volume loss. Findings were discussed with the patient's nurse, Wojciech, at 3:41 PM on 10/04/2019. FOR INTERNAL CODING PURPOSES RESULT CODE: (C) Electronically signed by: Porfirio Stark MD (10/04/2019 3:44 PM) [id number]
[2019-10-04] MEDS ORDERED: ATOR80TA72 PO (17:29)
[2019-10-04] MEDS ORDERED: ATOR10TA60 PO (17:34)
[2019-10-04] MEDS ORDERED: ASPI325T8 PO (17:35)
--- NOTE | 2019-10-04 17:55 | NUR ---
Discharge Note: KHURRAM MCDONNELL [address] Discharge instructions and discharge home medications reviewed with Patient and a copy given. All questions have been answered and understanding verbalized. The following instructions and handouts were given: patient visit report, medication information, education. Stroke packet given to patient. Discontinued lines and drains: peripheral IV, tip intact. Patient discharged to home with self care via private vehicle. Patient left unit awake, in stable condition, with all personal belongings. Cindy called heather Melendrez pharmacist, at [facility].
[2019-10-04] MEDS ORDERED: ACETAMINOPHEN 325 MG TABLET. PO SCH (21:00)
[2019-10-04] MEDS ORDERED: ATORVASTATIN CALCIUM 10 MG TABLET. PO SCH (21:00)
[2019-10-04] MEDS ORDERED: traMADol 50 MG TABLET PO SCH (21:00)
== END 2019-10-04 16:00 | disposition home or self-care (01) | DRG 66 ==
LOC: ER 14:12 → 6 SOUTH 16:29
PROVIDERS: ADMIT Internal Medicine; ATTEND Internal Medicine
DX: I63.81 Other cerebral infarction due to occlusion or stenosis of small artery (principal); E78.00 Pure hypercholesterolemia, unspecified; E78.5 Hyperlipidemia, unspecified; F17.200 Nicotine dependence, unspecified, uncomplicated; I10 Essential (primary) hypertension; K21.9 Gastro-esophageal reflux disease without esophagitis; N40.0 Benign prostatic hyperplasia without lower urinary tract symptoms; R29.810 Facial weakness; Z79.82 Long term (current) use of aspirin; Z82.49 Family history of ischemic heart disease and other diseases of the circulatory system; Z91.19 Patient's noncompliance with other medical treatment and regimen; Z90.49 Acquired absence of other specified parts of digestive tract
CPT/HCPCS: 36415; 70450; 70551; 80053; 81001; 82962; 83735; 84484; 85025; 85610; 85730; 93005; 93880; 96374; 99285; 99406; J2060; 92610-GN; 97535-GO; G0378